=== PATIENT | male | born 1980 | race Caucasian/White ===

== ENCOUNTER 2016-12-22 04:35 | Emergency (ER) | payer SELFPAY | END 2016-12-22 06:08 | disposition left against medical advice (07) | LOC: ER 04:35 | DX: S50.312A Abrasion of left elbow, initial encounter (principal); M79.89 Other specified soft tissue disorders; V49.9XXA Car occupant (driver) (passenger) injured in unspecified traffic accident, initial encounter | CPT/HCPCS: 90471; 90714; 99283 ==